=== PATIENT | female | born 1935 | race Caucasian/White ===

== ENCOUNTER 2022-08-03 07:57 | Emergency (ER) | payer MEDICARE, BC, SELFPAY ==
[2022-08-03] VITALS (22 sets, daily range): BP systolic 152–186; BP diastolic 63–110; PULSE 56–81; RESP 20; TEMP 36.9; O2SAT 94–99; BMI 26.6
--- NOTE | 2022-08-03 08:54 | ED_ITS ---
History of Present Illness General Chief Complaint: Epistaxis/Nosebleed Stated Complaint: Nose bleed/taking baby aspirin Time Seen by Provider: 08/03/22 08:56 History of Present Illness HPI Narrative: This 86-year-old woman comes in reporting nose bleed that started about an hour prior to arrival. At the time of my visit she no longer has any sign of bleeding. There is sign of injury on the nasal septum anteriorly and bilaterally. There is no blood in the oropharynx. She is taking an aspirin daily. She does not report any lightheadedness or shortness of breath. Related Data Home Medications Medication Instructions Recorded Confirmed aspirin 81 mg tablet,delayed 81 mg PO DAILY 08/03/22 08/03/22 release atenolol 25 mg tablet 25 mg PO DAILY 08/03/22 08/03/22 levothyroxine 100 mcg tablet 100 mcg PO DAILY 08/03/22 08/03/22 losartan 50 mg tablet 50 mg PO DAILY 08/03/22 08/03/22 simvastatin 20 mg tablet 20 mg PO DAILY 08/03/22 08/03/22 Allergies Allergy/AdvReac Type Severity Reaction Status Date / Time lisinopril Allergy Cough Verified 08/03/22 08:24 Review of Systems Status of ROS: Reports: 10 or more systems reviewed and unremarkable except as noted in History and below Narrative: Constitutional: No fevers, no weight gain or loss. Eyes: No discharge. No vision changes. HENT: No congestion, no sore throat, no ear pain. Nose bleed as described above. Cardiovascular: No chest pain, no palpitations. Respiratory: No shortness of breath, no wheezes, occasional cough. Gastrointestinal: No abdominal pain, no vomiting, no diarrhea. Genitourinary: No dysuria, no hematuria. Musculoskeletal: Normal range of motion. Skin: No rashes, no pruritis. Neurological: No dizziness, weakness, sensory change, speech change. Endo/Heme/Allergies: No bruising or bleeding. No polydipsia. Pysch: no suicidality, no anxiety, no insomnia. All other systems reviewed and are negative. PFSH PFS Social History Smoking Status: Never smoker Do you use any of these nicotine containing products: None Second hand tobacco smoke exposure: No How often do you have a drink containing alcohol: never AUDIT-C Alcohol total score: 0 Non-prescribed substance use: denies use Exam Narrative: Exam Narrative: Constitutional: Well-developed, well-nourished, no acute distress. HEENT: Normocephalic, atraumatic. No active bleeding in either nostril. There is sign of injury on the nasal septum bilaterally and anteriorly. Neck: Normal range of motion. Nontender. Supple. Heart: Regular. No murmurs. Normal rate. Intact distal pulses. Lungs: Clear to auscultation. No chest discomfort. No wheezes, rhonchi, or rales. Abdomen: Normal bowel sounds. Nontender. No rebound tenderness. Genitalia: Deferred. Back: No midline tenderness. Normal range of motion. Extremities: Normal range of motion. No injury. Skin: Intact. No rash. Warm. No erythema or pallor. Neurologic: No altered sensation. No weakness. Alert and oriented. Psychiatric: No suicidality. No anxiety or depression. No insomnia. Nursing notes and vitals signs are reviewed. Const: Vital Signs, click to edit/add: Vital Signs - 24 hr 08/03/22 08:18 08/03/22 08:50 08/03/22 09:00 Temperature 98.5 F Pulse Rate 69 68 Pulse Rate [Pulse Oximeter] 81 Respiratory Rate 20 Blood Pressure Blood Pressure [Le ft Upper Arm] 186/110 H Pulse Oximetry 97 97 [facility] 08/03/22 09:01 08/03/22 09:15 08/03/22 09:30 Temperature Pulse Rate 69 63 59 L Pulse Rate [Pulse Oximeter] Respiratory Rate Blood Pressure 163/85 H Blood Pressure [Le ft Upper Arm] Pulse Oximetry 94 96 97 Oxygen Delivery [facility] 08/03/22 09:32 08/03/22 09:45 08/03/22 10:00 Temperature Pulse Rate 62 61 58 L Pulse Rate [Pulse Oximeter] Respiratory Rate Blood Pressure 156/75 H Blood Pressure [Le ft Upper Arm] Pulse Oximetry 97 98 97 [facility] 08/03/22 10:02 08/03/22 10:03 08/03/22 10:15 Temperature Pulse Rate 60 57 L 61 Pulse Rate [Pulse Oximeter] Respiratory Rate Blood Pressure 152/63 H Blood Pressure [Le ft Upper Arm] Pulse Oximetry 98 97 97 Oxygen Delivery [facility] 08/03/22 10:30 08/03/22 10:32 08/03/22 10:45 Temperature Pulse Rate 60 59 L 56 L Pulse Rate [Pulse Oximeter] Respiratory Rate Blood Pressure 168/75 H Blood Pressure [Le ft Upper Arm] Pulse Oximetry 97 96 97 Oxygen Delivery Me thod 08/03/22 11:00 08/03/22 11:01 Temperature Pulse Rate 61 57 L Pulse Rate [Pulse Oximeter] Respiratory Rate Blood Pressure 178/81 H Blood Pressure [Le ft Upper Arm] Pulse Oximetry 97 97 Oxygen Delivery Me thod Course Vital Signs Vital signs: Initial Vital Signs Temperature 98.5 F 08/03/22 08:18 Temperature Source Temporal Artery Scan 08/03/22 08:18 Pulse Rate 81 08/03/22 08:18 Respiratory Rate 20 08/03/22 08:18 Blood Pressure 186/110 H 08/03/22 08:18 Blood Pressure Mean 135 08/03/22 08:18 Blood Pressure Position Sitting 08/03/22 08:18 Pulse Oximetry 97 08/03/22 08:18 Oxygen Delivery Method 08/03/22 08:18 Vital Signs Temperature 98.5 F 08/03/22 08:18 Pulse Rate 81 08/03/22 08:18 Respiratory Rate 20 08/03/22 08:18 Blood Pressure 186/110 H 08/03/22 08:18 Pulse Oximetry 97 08/03/22 08:18 Oxygen Delivery Method 08/03/22 08:18 Temperature 98.5 F 08/03/22 08:18 Pulse Rate 57 L 08/03/22 11:01 Respiratory Rate 20 08/03/22 08:18 Blood Pressure 178/81 H 08/03/22 11:01 Pulse Oximetry 97 08/03/22 11:01 Oxygen Delivery Method 08/03/22 08:18 MDM - Epistaxis MDM Narrative Medical decision making narrative: This patient received Afrin spray in each nostril. There is no active bleeding that required direct pressure however the patient was instructed with regard to using a nasal clamp. The patient did have a rebleed that was easily managed by using the nasal clamp again. She is not showing any sign of posterior bleed does not have any blood in the oropharynx. This patient is okay to be discharged home and understands how to proceed if rebleeding may occur. I advised her to be very gentle with her nose and allow for the mucosal lining to heal. Discharge Plan Discharge Clinical Impression: Epistaxis Patient Disposition: Home, Self-Care Condition: Improved Additional Instructions: Use nasal clamp if rebleeding occurs. Follow up with MD or return if worsening. Prescriptions: No Action atenolol 25 mg tablet 25 mg PO DAILY levothyroxine 100 mcg tablet 100 mcg PO DAILY Label Comments: TAKE 1 TABLET (100 MCG) BY MOUTH BEFORE BREAKFAST. losartan 50 mg tablet 50 mg PO DAILY Label Comments: TAKE 1 TABLET BY MOUTH EVERY DAY simvastatin 20 mg tablet 20 mg PO DAILY Label Comments: TAKE 1 TABLET BY MOUTH EVERY DAY aspirin 81 mg tablet,delayed release (DR/EC) 81 mg PO DAILY Follow Up/Referrals: Ravi Guerra MD [Primary Care Provider] - Stand Alone Forms: [facility] Info Instructions
[2022-08-03] MEDS: OXYMETAZOLINE 0.05% NASAL SPRAY 1 SPRAY NOSTRIL-B (09:19)
--- NOTE | 2022-08-03 11:31 | ED.NURSE ---
Pt resting in chair. nose had started bleeding. Clamp had been applied for 10 min.
== END 2022-08-03 12:05 | disposition home or self-care (01) ==
PROVIDERS: Emergency Provider Emergency Medicine Emergency Medical Services; PCP Surgery
DX: R07.89 Other chest pain (principal)
CPT/HCPCS: 94761; 99283; 99284; A9270

== ENCOUNTER 2022-11-25 08:41 | Day surgery (SDC) | payer MEDICARE, BC, SELFPAY ==
[2022-11-25 09:00] VITALS: BMI 26.6
[2022-11-25] MEDS: TETRACAINE 0.5% OPHTH 1 DROP EYE-LEFT ×2 (09:00→09:05)
[2022-11-25] MEDS: KETOROLAC OPHTH 0.5% 1 DROP EYE-LEFT ×3 (09:00→09:10)
[2022-11-25 09:11] VITALS: BP 179/82; PULSE 64; RESP 16; TEMP 36.4; O2SAT 99
[2022-11-25] MEDS: SODIUM CHLORIDE 0.9 % (FLUSH) 10 ML SYRINGE IVF ×2 (09:15→10:02)
--- NOTE | 2022-11-25 09:18 | SUR.PREOP ---
The eye drops brought by the patient (Ketorolac and Prednisolone) are examined and I have determined they are labeled by the patient's pharmacy for this patient as prescribed by the surgeon. The bottles are intact, recently obtained and appear to be correct.
[2022-11-25] MEDS: TETRACAINE 0.5% OPHTH 2 DROP EYE-LEFT (10:25)
[2022-11-25] MEDS: BALANCED SALT IRRIG SOLN 15 ML EYE-LEFT (10:30)
--- NOTE | 2022-11-25 10:30 | P.ANES_ITS ---
Anesthesia Charges Start Date/Time Anesthesia Start Date: 11/25/22 Anesthesia Start Time: 10:22 Stop Date/Time Anesthesia Stop Date: 11/25/22 Anesthesia Stop Time: 11:14 Summary Extremes of Age - Over 70 or under 1: [employer]
[2022-11-25 11:10] VITALS: BP 132/93; PULSE 60; RESP 16; TEMP 36.6; O2SAT 99
--- NOTE | 2022-11-25 11:18 | P.OPTPRC_ITS ---
Procedure Note Date of procedure: 11/25/22 Will [facility] bill your pro fee for this procedure?: Yes Procedure Description: SURGEON: Savanna Sloan MD PREOPERATIVE DIAGNOSIS: 1. Nuclear sclerotic cataract, left eye. 2. Miosis, left eye. POSTOPERATIVE DIAGNOSIS: 1. Nuclear sclerotic cataract, left eye. 2. Miosis, left eye. NAME OF OPERATION: Phacoemulsification of cataract with posterior chamber intraocular lens implantation in the left eye with pupilloplasty. ANESTHESIA: Topical. ESTIMATED BLOOD LOSS: Less than 2 cc. COMPLICATIONS: None. PATHOLOGY SPECIMEN: None. INDICATIONS: See consult note for details. The risks, benefits and alternatives of the procedure were explained to the patient, who elected to proceed and signed informed consent to do so. PROCEDURE: The patient was brought to the pre-holding area where the left eye was identified as the operative eye. I placed my initials above this eye. The patient received eye drops consisting of 0.5% tetracaine, 1% tropicamide, 10% phenylephrine, and 0.5% ketorolac. The patient was given 12.5 grams IV mannitol and a [place] balloon was placed for 8 minutes pre-operatively. The patient was then brought to the operating room where the left eye was again identified as the operative eye. The eye was prepped with Betadine and draped in the usual sterile ophthalmic fashion. A #15 super-sharp blade was used to create a paracentesis site. 1% non-preserved intracameral lidocaine was injected into the anterior chamber. Endocoat was injected into the anterior chamber. A 2.4 mm keratome was used to create a three-plane self-sealing incision 1 mm anterior to the temporal limbus. A #15 super-sharp blade was used to create four additional paracentesis sites. Four Grieshaber iris hooks were placed in order to stretch the iris. A cystotome was used to create an anterior capsular leaflet. The Utrata forceps were used to extend this to form a continuous curvilinear capsulorrhexis. Hydrodissection was performed. The cataract was removed with phacoemulsification using the [id number] technique. The irrigation and aspiration tip was used to remove the remaining cortex. Healon was injected into the capsular bag. An CARLOS ZCB00 intraocular lens of 23.5 diopters was injected into the capsular bag. The four Grieshaber iris hooks were removed. The irrigation and aspiration tip was used to remove the remaining viscoelastic. Miostat was injected into the anterior chamber. Balanced salt solution on a cannula was used to hydrate the wound, and the wound was found to be watertight. The pupil was noted to be round. DISPOSITION: The patient was taken to the recovery room and discharged to home in stable condition. The patient was instructed to call me or go to the emergency department with any sudden change, including dramatic loss of vision, severe pain in the eye or eyebrow region, nausea, or vomiting. The patient will follow up in the clinic tomorrow morning.
== END 2022-11-25 11:42 | disposition home or self-care (01) ==
PROVIDERS: PCP Surgery; Visit Provider Ophthalmology
PROC: (CPT 66982; principal; 2022-11-25 09:15)
DX: H25.12 Age-related nuclear cataract, left eye (principal); H57.03 Miosis
CPT/HCPCS: 66982; 00142; 99100; A9270; J2150; J2250; J2405; J3010; V2632